=== PATIENT | male | born 1995 | race Two or more races ===

== ENCOUNTER 2021-05-24 13:27 | Outpatient (CLI) | payer OTHER | END 2021-05-24 13:36 | disposition home or self-care (01) | LOC: RAD 13:27 | PROVIDERS: ATTEND Orthopaedic Surgery | DX: M25.562 Pain in left knee (principal); M25.561 Pain in right knee; M25.572 Pain in left ankle and joints of left foot; M25.571 Pain in right ankle and joints of right foot ==